=== PATIENT | male | born 1985 | race Caucasian/White ===

== ENCOUNTER 2018-12-08 17:10 | Emergency (ER) | payer BC ==
[2018-12-08] MEDS ORDERED: cefTRIAXone 500 MG in Lidocaine 1% 1 ML IM ONE (17:39)
[2018-12-08] MEDS ORDERED: Azithromycin 250 MG Tab PO ONE (17:39)
--- NOTE | 2018-12-08 17:44 | EDM.PDOC ---
ED HPI GENERAL MEDICAL PROBLEM - General Chief Complaint: Eye Problems Stated Complaint: POSS PINK EYE, IRRITATION Time Seen by Provider: 12/08/18 17:15 Source of Information: Reports: Patient History Limitations: Reports: No Limitations - History of Present Illness INITIAL COMMENTS - FREE TEXT/NARRATIVE: History of present illness: []Patient has had 4 days of burning with urination and developed a pink eye with drainage this morning. STD. Review of systems: As per history of present illness and below otherwise all systems reviewed and negative. Past medical history: As per history of present illness and as reviewed below otherwise noncontributory. Surgical history: As per history of present illness and as reviewed below otherwise noncontributory. Social history: No reported history of drug or alcohol abuse. Family history: As per history of present illness and as reviewed below otherwise noncontributory. Physical exam: General: Well developed, well nourished in NAD HEENT: Atraumatic, normocephalic, pupils reactive, positive for conjunctival erythema right eye, mucous membranes moist, throat clear, neck supple, nontender , trachea midline. Lungs: Clear to auscultation, breath sounds equal bilaterally, chest nontender. Heart: S1S2, regular, negative for clicks, rubs, or JVD. Abdomen: NABS, Soft, nondistended, nontender. Negative for masses or hepatosplenomegaly. Negative for costovertebral tenderness. Pelvis: Stable nontender. Genitourinary: Deferred. Rectal: Deferred. Extremities: Atraumatic, negative for cords or calf pain. Neurovascular unremarkable. Neuro: Awake, alert, oriented. Cranial nerves II through XII unremarkable. Cerebellum unremarkable. Motor and sensory unremarkable throughout. Exam nonfocal. Skin:warm and dry Diagnostics: Urine GC chlamydia culture sent Therapeutics: Zithromax, Rocephin given ED Course: Stable Impression: STD prophylaxis, conjunctivitis Prescriptions: Erythromycin ophthalmic Plan: Take meds as directed, follow up with your primary care physician, return to ER if symptoms worsen or change. Definitive disposition and diagnosis as appropriate pending reevaluation and review of above. - Related Data Allergies Allergy/AdvReac Type Severity Reaction Status Date / Time No Known Allergies Allergy Verified 12/08/18 17:22 Home Meds: Home Meds Erythromycin Base [Erythromycin 0.5% Ophth Oint] 1 applic OP Q12H #1 tube [Rx] Past Medical History - Past Health History Medical/Surgical History: Denies Medical/Surgical History - Infectious Disease History Infectious Disease History: Reports: Chicken Pox, Mononucleosis Social & Family History - Tobacco Use Smoking Status *Q: Never Smoker - Caffeine Use Caffeine Use: Reports: Energy Drinks - Recreational Drug Use Recreational Drug Use: No ED ROS GENERAL - Review of Systems Review Of Systems: ROS reveals no pertinent complaints other than HPI. ED EXAM GENERAL W FULL EYE - Physical Exam Exam: See Below Course - Vital Signs Last Recorded V/S: Last Vital Signs Temp 96.3 F 12/08/18 17:16 Pulse 78 12/08/18 17:16 Resp 16 12/08/18 17:16 BP 159/112 H 12/08/18 17:16 Pulse Ox 98 12/08/18 17:16 - Orders/Labs/Meds Orders: Active Orders 24 hr Category Date Time Status CHLAMYDIA AND GONORRHEA BY [facility] Stat Lab 12/08/18 17:39 Ordered Meds: Medications Discontinued Medications Generic Name Dose Route Start Last Admin Trade Name Eliseo PRN Reason Stop Dose Admin Azithromycin 1,000 mg 12/08/18 17:39 Zithromax PO 12/08/18 17:40 Q24H ONE Ceftriaxone Sodium 500 mg/ 1 mls @ 1 mls/sec 12/08/18 17:39 Lidocaine HCl IM 12/08/18 17:40 ONETIME ONE Departure - Departure Time of Disposition: 17:50 Disposition: Home, Self-Care 01 Condition: Good Clinical Impression: Concern about STD in male without diagnosis Conjunctivitis Qualifiers: Conjunctivitis type: acute Acute conjunctivitis type: unspecified Laterality: right Qualified Code(s): H10.31 - Unspecified acute conjunctivitis, right eye - Discharge Information *PRESCRIPTION DRUG MONITORING PROGRAM REVIEWED*: No *COPY OF PRESCRIPTION DRUG MONITORING REPORT IN PATIENT ORI: No Prescriptions: Erythromycin Base [Erythromycin 0.5% Ophth Oint] 1 applic OP Q12H #1 tube Referrals: PCP,None [Primary Care Provider] - Additional Instructions: The following information is given to patients seen in the emergency department who are being discharged to home. This information is to outline your options for follow-up care. We provide all patients seen in our emergency department with a follow-up referral. The need for follow-up, as well as the timing and circumstances, are variable depending upon the specifics of your emergency department visit. If you don't have a primary care physician on staff, we will provide you with a referral. We always advise you to contact your personal physician following an emergency department visit to inform them of the circumstance of the visit and for follow-up with them and/or the need for any referrals to a consulting specialist. The emergency department will also refer you to a specialist when appropriate. This referral assures that you have the opportunity for follow-up care with a specialist. All of these measure are taken in an effort to provide you with optimal care, which includes your follow-up. Under all circumstances we always encourage you to contact your private physician who remains a resource for coordinating your care. When calling for follow-up care, please make the office aware that this follow-up is from your recent emergency room visit. If for any reason you are refused follow-up, please contact the [facility] Emergency Department at and asked to speak to the emergency department charge nurse. Take meds as directed, follow up with your primary care physician, return to ER if symptoms worsen or change. [facility] [address] [place] [id number] - My Orders Last 24 Hours: My Active Orders 12/08/18 17:39 CHLAMYDIA AND GONORRHEA BY [facility] Stat - Assessment/Plan Last 24 Hours: My Active Orders 12/08/18 17:39 CHLAMYDIA AND GONORRHEA BY [facility] Stat
== END 2018-12-08 18:11 | disposition home or self-care (01) ==
LOC: MW.ED 17:10
DX: H10.31 Unspecified acute conjunctivitis, right eye (principal); Z11.3 Encounter for screening for infections with a predominantly sexual mode of transmission
CPT/HCPCS: 87491; 87591; 96372; 99283; A9270; J0696; J2001